=== PATIENT | female | born 1960 | race Hispanic/Latino ===

== ENCOUNTER 2018-04-16 15:41 | Inpatient (IN) | payer BC ==
[2018-04-16] MEDS ORDERED: Sodium Chloride 0.9% 500 ML IV STA (15:51)
[2018-04-16 16:15] LABS: BASO # 0.03 K/mm3 (0.0-2.0); BASO % 0.4 % (0.0-3.0); EOS # 0.1 (0.0-0.7); EOS % 0.7 % (1.5-5.0); GRAN # 4.5 (1.4-6.5); GRAN % 55.9 % (50.0-68.0); HEMOGLOBIN 15.6 g/dL (12.0-16.0); LYMPH # 3.1 (1.2-3.4); MEAN CELL VOLUME 84.6 fl (80.0-105.0); MEAN CORPUSCULAR HEMOGLOBIN 29.3 pg (25.0-35.0); MEAN CORPUSCULAR HGB CONC 34.7 g/dl (31.0-37.0); MEAN PLATELET VOLUME 10.1 fl (7.0-11.0); MONO # 0.3 (0.1-0.6); RBC 5.32 10^6/uL (3.5-6.1); RED CELL DISTRIBUTION WIDTH 13.1 % (11.5-14.5); WHITE BLOOD COUNT 8.1 10^3/ul (4.5-11.0)
[2018-04-16 16:28] LABS: INR 0.91 (0.93-1.08); PARTIAL THROMBOPLASTIN TIME 30.4 Seconds (25.1-36.5); PROTHROMBIN TIME 10.3 SECONDS (9.4-12.5)
[2018-04-16 16:30] LABS: ALB/GLOB RATIO 1.5 (1.1-1.8); ALBUMIN 4.8 g/dL (3.0-4.8); ALT/SGPT 26 U/L (7-56); AMYLASE 54 U/L (35-125); AST/SGOT 30 U/L (14-36); BLOOD UREA NITROGEN 14 mg/dL (7-21); CALCIUM 9.1 mg/dL (8.4-10.5); GFR AFRICAN-AMERICAN > 60; GFR NON-AFRICAN AMERICAN > 60; LIPASE 88 U/L (23-300)
[2018-04-16 16:32] LABS: ACETAMINOPHEN < 10.0 ug/ml (10.0-20.0); SALICYLATE < 1 mg/dL (2.0-20.0)
--- NOTE | 2018-04-16 16:39 | RAD ---
Date of service: 04/16/2018 HISTORY: weakness COMPARISON: 12/05/2014 FINDINGS: LUNGS: No active pulmonary disease. PLEURA: No significant pleural effusion identified, no pneumothorax apparent. CARDIOVASCULAR: Normal. OSSEOUS STRUCTURES: No significant abnormalities. VISUALIZED UPPER ABDOMEN: Normal. OTHER FINDINGS: None. IMPRESSION: No active disease.
[2018-04-16 16:40] LABS: TROPONIN I < 0.01 ng/mL
[2018-04-16] MEDS ORDERED: Multivitamin (MVI) 10 ML, Thiamine 100 MG, Folic Acid 1 MG in Sodium Chloride 0.9% 1,00... IV ONE ×2 (16:54→19:23)
--- NOTE | 2018-04-16 19:29 | CARD ---
APPROVED REPORT Date of service: 04/16/2018 EKG Measurement Heart [id number] <Conclusion> Normal sinus rhythm Prolonged QT Abnormal ECG
--- NOTE | 2018-04-16 20:23 | ED PDOC ---
Arrival/HPI - General Chief Complaint: Alcohol Ingestion Time Seen by Provider: 04/16/18 15:46 Historian: Patient - History of Present Illness Narrative History of Present Illness (Text): 04/16/18 15:50 Patient is a 58 year old female, with past medical history of alcohol abuse, presents to the Emergency department complaining of worsening tremulousness and nausea since past 2 days. Patient admits to "binge drinking" over past week stating her last drink was 2 hours prior to arrival. Family reports patient has been increasingly agitated since yesterday prompting patient to present to the Emergency department for medical evaluation. Patient reports palpitations and "not feeling well". Denies hematemesis or dark or bloody stools. Denies chest pain or shortness of breath. Time/Duration: 1 week Symptom Onset: Gradual Activities at Onset: Light Context: Other (Drinking) Past Medical History - Provider Review Nursing Documentation Reviewed: Yes - Infectious Disease Hx of Infectious Diseases: None - Tetanus Immunization Tetanus Immunization: Unknown - Past Medical History Past Medical History: No Previous - Cardiac Hx Cardiac Disorders: No Hx Hypertension: No - Pulmonary Hx Respiratory Disorders: No Hx Tuberculosis: No - Neurological Hx Neurological Disorder: No HX Cerebrovascular Accident: No Hx Seizures: No - HEENT Hx HEENT Disorder: No - Renal Hx Renal Disorder: No - Endocrine/Metabolic Hx Endocrine Disorders: No - Hematological/Oncological Hx Blood Disorders: No Hx Cancer: No - Integumentary Hx Dermatological Disorder: No - Musculoskeletal/Rheumatological Hx Musculoskeletal Disorders: No - Gastrointestinal Hx Gastrointestinal Disorders: No - Genitourinary/Gynecological Hx Genitourinary Disorders: No Hx Sexually Transmitted Diseases: No - Psychiatric Hx Psychophysiologic Disorder: No Hx Anxiety: No Hx Bipolar Disorder: No Hx Depression: No Hx Emotional Abuse: No Hx Hallucinations: No Hx Panic Disorder: No Hx Post Traumatic Stress Disorder: No Hx Psychosis: No Hx Physical Abuse: No Hx Schizophrenia: No Hx Sexual Abuse: No Hx Substance Use: No Other/Comment: pt claims to kill self, denies hurting others. - Past Surgical History Past Surgical History: Non-Contributing - Surgical History Hx Appendectomy: Yes Hx Orthopedic Surgery: Yes (left knee meniscus surgery) Other/Comment: breast implant - Anesthesia Hx Anesthesia: Yes Hx Anesthesia Reactions: No Hx Malignant Hyperthermia: No - Suicidal Assessment Feels Threatened In Home Enviroment: No Family/Social History - Physician Review Nursing Documentation Reviewed: Yes Family/Social History: Unknown Family HX Smoking Status: Former Smoker Hx Alcohol Use: Yes (past 3 years has picked up drinking) Frequency of alcohol use: Daily Hx Substance Use: No Hx Substance Use Treatment: No Allergies/Home Meds Allergies/Adverse Reactions: Allergies Penicillins Adverse Reaction (Verified 04/16/18 15:49) GI symptoms/burning Home Medications: Home Meds Medication Instructions Recorded Confirmed Amphetamine Salt Combination 1 tab PO DAILY 04/16/18 04/16/18 [Adderall] Review of Systems - Review of Systems Constitutional: Other (tremulousness). absent: Fevers Eyes: absent: Vision Changes ENT: absent: Hearing Changes Respiratory: absent: SOB Cardiovascular: Palpitations. absent: Chest Pain, Edema Gastrointestinal: Nausea. absent: Abdominal Pain, Stool Changes, Diarrhea, Vomiting, Appetite Changes, Hematochezia, Hematemesis Genitourinary Female: absent: Hematuria, Urine Output Changes Musculoskeletal: absent: Back Pain Skin: absent: Rash Neurological: Dizziness. absent: Headache, Focal Weakness, Speech Changes, Disequilibrium, Seizure Endocrine: absent: Diaphoresis Hemo/Lymphatic: absent: Easy Bleeding Psychiatric: Anxiety. absent: Suicidal Ideation Physical Exam - Physical Exam Narrative Physical Exam (Text): 04/16/18 15:50 Head: Atraumatic. Normocephalic. Eyes: PERRL. EOMI. Conjunctivae are not pale. Sclera anicteric. ENT: Mucous membranes are dry and tacky. No drooling. No stridor. No facial edema. Neck: Supple. Full ROM. No JVD. No lymphadenopathy. Cardiovascular: Tachycardic. No murmur auscultated. Distal pulses intact. Pulmonary/Chest: No evidence of respiratory distress. Clear to auscultation bilaterally. No wheezing, rales or rhonchi. Abdominal: Soft and non-distended. There is no tenderness. No rebound, guarding, or rigidity. No organomegaly. Good bowel sounds. Back: Nontender. Extremities: No edema. No cyanosis. Full range of motion in all extremities. No calf tenderness. Skin: Skin is warm and dry. No petechiae. No purpura. No jaundice. Rectal: no gross bleeding reported Neurological: Alert, awake, and oriented to person, place, time, and situation. No slurred speech. No facial droop. Steady gait. No focal weakness or sensory deficits. Tremulous. Psychiatric: Tearful at times. Anxious. Denies suicidal or homicidal ideation. Vital Signs Reviewed: Yes Vital Signs Pulse Resp BP Pulse Ox 04/16/18 19:06 110 H 18 126/79 97 04/16/18 17:45 102 H 18 108/71 95 04/16/18 15:43 113 H 19 141/72 96 Temperature: Afebrile Blood Pressure: Normal Pulse: Tachycardic Respiratory Rate: Normal Appearance: Positive for: Well-Appearing, Non-Toxic, Comfortable Pain Distress: None Mental Status: Positive for: Alert and Oriented X 3 Finger Stick Blood Glucose: 115 Medical Decision Making ED Course and Treatment: 04/16/18 15:50 Impression: 58 year old female presents to the Emergency department for tremulousness and nausea. Differential Diagnosis included but are not limited to: alcohol withdrawal, alcohol abuse, alcohol intoxication Plan: -- EKG -- Labs -- Chest X-ray -- IV Fluids -- Zofran -- Ativan -- Urinalysis -- Reassess and disposition Prior Visits: Notes and results from previous visits were reviewed. Progress Notes: Patient seen immediately upon arrival to ED accompanied by family who also supplements history. On initial exam, she is tachycardic and tremulous, admits to "binge drinking". She is not slurring or unsteady. No headache, no abdominal pain, no dark or bloody stools reported. Suspect tachycardia related to component of alcohol withdrawal, anxiety. NO suicidal ideation reported. IV ativan ordered with mild improvement of symptoms. Additional Ativan ordered and less tachycardia and tremulousness noted. She is able to rest and is easily arousable. No respiratory distress noted. NO abdominal pain reported. Risks of excessive alcohol use reviewd with patient. Banana bag iv fluids ordered. Case d/w oncall physician Dr Jaylon Ziegler, accepts patient to his service to telemetry bed. 04/16/18 16:26 Chest X-ray reviewed by radiologist, shows no active disease. 04/17/18 01:29 - Lab Interpretations Lab Results: 04/16/18 16:11 04/16/18 16:11 Lab Results 04/16/18 16:11: Alcohol, Quantitative 257 H 04/16/18 16:11: Salicylates < 1 L, Acetaminophen < 10.0 L 04/16/18 16:11: Sodium 141, Potassium 4.1, Chloride 100, Carbon Dioxide 23, Anion Gap 22 H, BUN 14, Creatinine 0.6 L, Est GFR ( Amer) > 60, Est GFR ( Non-Af Amer) > 60, Random Glucose 115 H, Calcium 9.1, Magnesium 1.9, Total Bilirubin 0.5, AST 30, ALT 26, Alkaline Phosphatase 87, Lactate Dehydrogenase 389, Total Creatine Kinase 67, Troponin I < 0.01, Total Protein 8.1, Albumin 4.8 , Globulin 3.3, Albumin/Globulin Ratio 1.5, Amylase 54, Lipase 88 04/16/18 16:11: PT 10.3, INR 0.91 L, APTT 30.4 04/16/18 16:11: WBC 8.1, RBC 5.32, Hgb 15.6, Hct 45.0, MCV 84.6, MCH 29.3, MCHC 34.7, RDW 13.1, Plt Count 326, MPV 10.1, Gran % 55.9, Lymph % (Auto) 39.0 H, Wilkin % (Auto) 4.0, Eos % (Auto) 0.7 L, Baso % (Auto) 0.4, Gran # 4.50, Lymph # ( Auto) 3.1, Wilkin # (Auto) 0.3, Eos # (Auto) 0.1, Baso # (Auto) 0.03 - RAD Interpretation Radiology Orders: 04/16/18 15:50 CHEST PORTABLE [RAD] Stat Residential Appliance 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: Radiologist - Medication Orders Current Medication Orders: Multivitamins/Vitamin C 10 ml/Thiamine HCl 100 mg/ Folic Acid 1 mg/ Sodium Chloride 1,011.2 mls @ 60 mls/hr IV .[id number] Stop: 04/17/18 12:14 Last Admin: 04/16/18 20:17 Dose: 60 mls/hr Comments: initiated in ER eMAR Start Stop Document 04/16/18 20:17 MS (Rec: 04/16/18 20:17 MS [id number]) Intravenous Solution Start Date 04/16/18 Start Time 20:17 Lorazepam (Ativan) 0.5 mg IVP Q4H PRN; Protocol PRN Reason: Agitation Last Admin: 04/16/18 21:28 Dose: 0.5 mg IVP Administration Document 04/16/18 21:28 MS (Rec: 04/16/18 21:37 MS [id number]) Charges for Administration # of IVP Administrations 1 Behavioural Document 04/16/18 21:28 MS (Rec: 04/16/18 21:37 MS [id number]) Maintenance Maintenance Dose No Nonmedicinal Nonmedicinal Interventions Redirect Therapeutic Communication Activity Behavior Behavior for Medication: Anxiety Behavior Comment withdrawal Re-Assess: Reassess Psych Meds Document 04/16/18 21:58 FG (Rec: 04/17/18 00:57 FG [facility] [place]-[id number]) Reassess Psych Med Effective Ondansetron HCl (Zofran Inj) 4 mg IVP Q6H PRN PRN Reason: Nausea/Vomiting Pantoprazole Sodium (Protonix Inj) 40 mg IVP DAILY LULÚ Discontinued Medications Sodium Chloride (Sodium Chloride 0.9%) 500 mls @ 1,000 mls/hr IV .Q30M STA Stop: 04/16/18 16:20 Last Admin: 04/16/18 16:10 Dose: 1,000 mls/hr eMAR Start Stop Document 04/16/18 16:10 GMD (Rec: 04/16/18 16:11 [id number] Intravenous Solution Start Date 04/16/18 Start Time 16:10 End Date 04/16/18 End time 16:40 Total Infusion Time 30 Multivitamins/Vitamin C 10 ml/Thiamine HCl 100 mg/ Folic Acid 1 mg/ Sodium Chloride 1,011.2 mls @ 100 mls/hr IV .Q10H7M ONE Stop: 04/17/18 03:00 Last Admin: 04/16/18 18:10 Dose: 100 mls/hr eMAR Start Stop Document 04/16/18 18:10 GMD (Rec: 04/16/18 18:10 GMD [facility] [place]-[id number]) Intravenous Solution Start Date 04/16/18 Start Time 18:10 Lorazepam (Ativan) 1 mg IVP ONCE ONE Stop: 04/16/18 15:52 Last Admin: 04/16/18 16:09 Dose: 1 mg IVP Administration Document 04/16/18 16:09 GMD (Rec: 04/16/18 16:09 [id number]) Charges for Administration # of IVP Administrations 1 Lorazepam (Ativan) 1 mg IVP ONCE ONE Stop: 04/16/18 16:19 Last Admin: 04/16/18 16:34 Dose: 1 mg IVP Administration Document 04/16/18 16:34 GMD (Rec: 04/16/18 16:34 [id number] Charges for Administration # of IVP Administrations 1 Ondansetron HCl (Zofran Inj) 4 mg IVP ONCE ONE Stop: 04/16/18 15:54 Last Admin: 04/16/18 16:09 Dose: 4 mg IVP Administration Document 04/16/18 16:09 GMD (Rec: 04/16/18 16:09 [facility]MD [facility] [id number]) Charges for Administration # of IVP Administrations 1 - Scribe Statement The provider has reviewed the documentation as recorded by the Scribe Gerson Andujar. All medical record entries made by the Scribe were at my direction and personally dictated by me. I have reviewed the chart and agree that the record accurately reflects my personal performance of the history, physical exam, medical decision making, and the department course for this patient. I have also personally directed, reviewed, and agree with the discharge instructions and disposition. Disposition/Present on Arrival - Present on Arrival Any Indicators Present on Arrival: No History of DVT/PE: No History of Uncontrolled Diabetes: No Urinary Catheter: No History of Decub. Ulcer: No History Surgical Site Infection Following: None - Disposition Have Diagnosis and Disposition been Completed?: Yes Diagnosis: Alcohol withdrawal Disposition: HOSPITALIZED Disposition Time: 16:30 Patient Plan: Admission, Telemetry Condition: SERIOUS
[2018-04-16 20:49] LABS: PH,URINE 5.5 (4.7-8.0); URINE BILIRUBIN NEGATIVE (NEGATIVE); URINE BLOOD SMALL (NEGATIVE); URINE GLUCOSE (UA) NEGATIVE (NEGATIVE); URINE LEUKOCYTE ESTERASE NEGATIVE Leu/uL (NEGATIVE); URINE PROTEIN NEGATIVE mg/dL (<30 mg/dL); URINE UROBILINOGEN 0.2 E.U./dL (<1 E.U./dL)
[2018-04-16 20:50] LABS: URINE APPEARANCE CLEAR (CLEAR); URINE COLOR DARK YELLOW (YELLOW)
[2018-04-16 20:56] LABS: URINE EPITHELIAL CELLS 0 - 2 /hpf (0-5); URINE HYALINE CAST 0 - 2 /hpf; URINE RBC 0 - 2 /hpf (0-2); URINE WBC NEGATIVE /hpf (0-6)
[2018-04-16 23:23] VITALS: BMI 25.0
--- NOTE | 2018-04-17 03:25 | HP ---
HISTORY OF PRESENT ILLNESS: I was called down to the ER to see her. She is a 58-year-old female who comes in, shaky, in and out of it mentally, not feeling well, lots of abdominal pain with nauseousness. PAST MEDICAL HISTORY: She has a past medical history of alcohol abuse, GERD. She has been nauseous. She is in and out of it mentally, but she is asking for food. No chest pain, no shortness of breath. No abdominal pain. I do not see anything about suicidal thoughts or anything like that. PAST SURGICAL HISTORY: She has had an appendectomy. She had left knee meniscus tear surgery. She had breast implants. ALLERGIES: SHE HAS ALLERGIES TO PENICILLIN. MEDICINES: She takes medicines for GERD. She has taken diazepam and Ananda-Citrate, multivitamin, and glucosamine chondroitin in the past. FAMILY HISTORY: Some hypertension in the family. SOCIAL HISTORY: No smoking, lots of alcohol. No substance abuse. REVIEW OF SYSTEMS: On review of systems, no acute vision or hearing changes. No sore throat. No chest pain, shortness of breath, or abdominal pain. She has some nauseousness. She is very weak and in and out of it mentally, hard to get a full grasp of her conversation. PHYSICAL EXAMINATION: VITAL SIGNS: She has a 113 at the most pulse, down to 102; 108/71 blood pressure; 18 respiratory rate; 95 to 97% O2 sat. HEENT: Head is atraumatic, normocephalic. Extraocular muscles intact. Pupils equal and reactive to light. Throat is dry. NECK: Supple. HEART: Regular rate. Normal S1, S2. LUNGS: Decreased breath sounds bilaterally, clear to auscultation. ABDOMEN: Soft, nontender. Positive bowel sounds. No guarding, no rebound or CVA tenderness. NEUROLOGIC: GCS is 15. Cranial nerves II through XII grossly intact. SKIN: Warm and dry. No apparent rashes or ulcers. PSYCHIATRIC: She is alert, very in and out of it mentally from being inebriated. LABORATORY DATA: She had tests done. She has 257 alcohol level. Sodium 141, potassium 4.1, anion gap is 22, BUN 14, creatinine 0.6, GFR greater than 60, sugar is 150, calcium is 9.1, magnesium 1.9. Total bili is 0.5, AST is 30, ALT is 26, alk phos 87, lactate dehydrogenase is 389, total creatine kinase 67. Troponin-I is less than 0.01, total protein is 8.1, albumin is 4.8, globulin 3.3. Amylase 54, lipase 88. INR is 0.91. White count is 8.1, hemoglobin 15.6, hematocrit 45, platelets of 326. Chest x-ray shows no active disease. ASSESSMENT AND PLAN: She is here for alcohol intoxication. We will put her on banana bag, Ativan, Protonix, IV fluids. Hopefully, she will improve in the next 24 to 36 hours. Jeffrey Ziegler DO
[2018-04-17 07:20] LABS: HEMOGLOBIN 13.2 g/dL (12.0-16.0); MEAN CELL VOLUME 85.7 fl (80.0-105.0); MEAN CORPUSCULAR HEMOGLOBIN 29.1 pg (25.0-35.0); MEAN PLATELET VOLUME 10.5 fl (7.0-11.0); RBC 4.53 10^6/uL (3.5-6.1); RED CELL DISTRIBUTION WIDTH 13.2 % (11.5-14.5)
[2018-04-17 07:35] LABS: ALB/GLOB RATIO 1.5 (1.1-1.8); ALBUMIN 4.1 g/dL (3.0-4.8); ALT/SGPT 22 U/L (7-56); AST/SGOT 35 U/L (14-36); BLOOD UREA NITROGEN 21 mg/dL (7-21); CALCIUM 8.8 mg/dL (8.4-10.5); GFR AFRICAN-AMERICAN > 60; GFR NON-AFRICAN AMERICAN > 60
[2018-04-17 08:20] VITALS: O2SAT 95
--- NOTE | 2018-04-17 13:07 | PN ---
DATE: 04/17/2018 SUBJECTIVE: She came in with an alcohol level that was quite high and she had some shakiness and not feeling well and alcohol level was 257. She is resting a little bit better today and very shaky this morning, but does have an appetite which is good. She is currently on Ativan 0.5 IV every 4 hours as needed, a banana bag with vitamins, Protonix IV and Zofran as needed. OBJECTIVE: VITAL SIGNS: She has a 98.2 temperature, 94 pulse, 130/76 blood pressure, 18 respiratory rate, 95% O2 sat on room air. HEENT: Head is atraumatic, normocephalic. HEART: Regular rate. LUNGS: Decreased breath sounds, but clear. ABDOMEN: Soft, nontender. Positive bowel sounds. EXTREMITIES: With no edema. DATA: She has a 7 white count, 13.2 hemoglobin, 38.8 hematocrit with 268 platelets. Sodium 138, potassium 4.5, BUN 21, creatinine 0.6. GFR is greater than 60. Sugar is 104. Calcium is 8.8. Total bili is 1, AST is 35, ALT is 22, alkaline phosphatase 77, total protein 6.7. Her lipase was 88. Amylase was 54. Urine is clean . She is being seen by no one yet. She has consults with no one, I am hoping that she does well today. She might be able to discharged later on after lunch; if she eats well, the shakiness goes away or she might stay another day. We will see how she does, will let me know this afternoon. She is here for alcohol intoxication, possible withdrawal. I think she has improved since yesterday, a little reflux and hopefully, she will improve quickly. Jeffrey Ziegler DO MTDD
[2018-04-17 17:56] VITALS: BP 156/77; RESP 17; TEMP 98.6
[2018-04-17 18:04] VITALS: PULSE 92
== END 2018-04-17 21:18 | disposition left against medical advice (07) | DRG 894 ==
LOC: ED 15:41 → ERH 16:54 → 2RSO 19:40
PROVIDERS: ADMIT Family Medicine; ATTEND Family Medicine
DX: F10.239 Alcohol dependence with withdrawal, unspecified (principal); F10.229 Alcohol dependence with intoxication, unspecified; K21.9 Gastro-esophageal reflux disease without esophagitis; Z90.49 Acquired absence of other specified parts of digestive tract; Z98.82 Breast implant status; Z82.49 Family history of ischemic heart disease and other diseases of the circulatory system; Z88.0 Allergy status to penicillin; R40.2412 Glasgow coma scale score 13-15, at arrival to emergency department; Y90.8 Blood alcohol level of 240 mg/100 ml or more

== ENCOUNTER 2018-12-09 15:05 | Inpatient (IN) | payer BC ==
[2018-12-09 15:06] VITALS: BMI 24.2
--- NOTE | 2018-12-09 16:17 | RAD ---
Date of service: 12/09/2018 HISTORY: PEs eval COMPARISON: 04/16/2018. FINDINGS: LUNGS: No active pulmonary disease. PLEURA: No significant pleural effusion identified, no pneumothorax apparent. CARDIOVASCULAR: No atherosclerotic calcification present No radiographic findings to suggest acute or significant cardiovascular disease. OSSEOUS STRUCTURES: No significant abnormalities. VISUALIZED UPPER ABDOMEN: Normal. OTHER FINDINGS: None. IMPRESSION: No active disease. No significant interval change compared to the prior examination(s).
[2018-12-09 17:42] LABS: BASO # 0.04 K/mm3 (0.0-2.0); BASO % 0.7 % (0.0-3.0); EOS # 0.2 (0.0-0.7); HEMOGLOBIN 13.9 g/dL (12.0-16.0); LYMPH # 3.2 (1.2-3.4); LYMPH % 56.6 % (22.0-35.0); MEAN CELL VOLUME 89.9 fl (80.0-105.0); MEAN CORPUSCULAR HEMOGLOBIN 29.8 pg (25.0-35.0); MEAN CORPUSCULAR HGB CONC 33.2 g/dl (31.0-37.0); MEAN PLATELET VOLUME 9.8 fl (7.0-11.0); MONO # 0.2 (0.1-0.6); MONO % 3.4 % (1.0-6.0); RBC 4.66 10^6/uL (3.5-6.1); RED CELL DISTRIBUTION WIDTH 13.4 % (11.5-14.5); WHITE BLOOD COUNT 5.7 10^3/uL (4.5-11.0)
--- NOTE | 2018-12-09 17:42 | ED PDOC ---
Arrival/HPI - General Chief Complaint: Psychiatric Evaluation Time Seen by Provider: 12/09/18 15:07 Historian: Patient - History of Present Illness Narrative History of Present Illness (Text): 12/09/18 17:35 58-year-old female with a history of depression and alcohol abuse presents today with worsening depression. Patient states that she is about to lose her job because she is alcoholic. Patient states she has been binge drinking since . Patient denies chest pain or shortness of breath. No abdominal pain. No vomiting or diarrhea. Patient states she is feeling nauseous now. She denies any recent trauma or injury. Patient was brought to the emergency room by her brother for psychiatric evaluation. Patient admits to drinking alcohol today. Past Medical History - Provider Review Nursing Documentation Reviewed: Yes - Travel History Have you recently traveled outside [place] w/in the past 3 mons?: No - Infectious Disease Hx of Infectious Diseases: None - Tetanus Immunization Tetanus Immunization: Unknown - Past Medical History Past Medical History: No Previous - Cardiac Hx Cardiac Disorders: No - Pulmonary Hx Respiratory Disorders: No - Neurological Hx Neurological Disorder: No - HEENT Hx HEENT Disorder: No - Renal Hx Renal Disorder: No - Endocrine/Metabolic Hx Endocrine Disorders: No - Hematological/Oncological Hx Blood Disorders: No - Integumentary Hx Dermatological Disorder: No - Musculoskeletal/Rheumatological Hx Musculoskeletal Disorders: No - Gastrointestinal Hx Gastrointestinal Disorders: No - Genitourinary/Gynecological Hx Genitourinary Disorders: No - Psychiatric Hx Depression: Yes Hx Substance Use: Yes - Past Surgical History Past Surgical History: Non-Contributing - Surgical History Hx Appendectomy: Yes - Anesthesia Hx Anesthesia: Yes Hx Anesthesia Reactions: No Hx Malignant Hyperthermia: No - Suicidal Assessment Feels Threatened In Home Enviroment: No Family/Social History - Physician Review Nursing Documentation Reviewed: Yes Family/Social History: Unknown Family HX Smoking Status: Former Smoker Hx Alcohol Use: Yes (binges every few months) Hx Substance Use: Yes Hx Substance Use Treatment: No Allergies/Home Meds Allergies/Adverse Reactions: Allergies Penicillins Adverse Reaction (Verified 07/03/18 16:34) GI symptoms/burning Home Medications: Home Meds Medication Instructions Recorded Confirmed Unobtainable 12/09/18 12/09/18 Review of Systems - Review of Systems Constitutional: absent: Fatigue, Fevers Respiratory: absent: SOB, Cough Cardiovascular: absent: Chest Pain, Palpitations Gastrointestinal: Nausea. absent: Abdominal Pain, Diarrhea, Vomiting Genitourinary Female: absent: Dysuria, Frequency, Hematuria Musculoskeletal: absent: Arthralgias, Back Pain, Neck Pain Skin: absent: Rash, Pruritis Neurological: Headache. absent: Dizziness Psychiatric: Depression. absent: Anxiety, Suicidal Ideation Physical Exam Vital Signs Reviewed: Yes Vital Signs Temp Pulse Resp BP Pulse Ox 12/09/18 15:40 98.0 F 115 H 18 147/96 H 95 Temperature: Afebrile Blood Pressure: Hypertensive Pulse: Tachycardic Respiratory Rate: Normal Appearance: Positive for: Well-Appearing, Non-Toxic, Comfortable Pain Distress: None Mental Status: Positive for: Alert and Oriented X 3 - Systems Exam Head: Present: Atraumatic Mouth: Present: Moist Mucous Membranes Neck: Present: Normal Range of Motion Respiratory/Chest: Present: Clear to Auscultation, Good Air Exchange. No: Respiratory Distress, Accessory Muscle Use Cardiovascular: Present: Regular Rate and Rhythm, Normal S1, S2. No: Murmurs Abdomen: No: Tenderness, Distention, Rebound, Guarding Back: Present: Normal Inspection Upper Extremity: Present: Normal ROM Lower Extremity: Present: Normal ROM Neurological: Present: GCS=15, Speech Normal Skin: Present: Warm, Dry, Normal Color Psychiatric: Present: Alert, Oriented x 3, Depressed Mood. No: Suicidal Ideation Medical Decision Making ED Course and Treatment: 12/09/18 17:37 Patient is nontoxic well-appearing in no distress tachycardic; anxious/ depression. denies SI. CBC WNL CMP WNL Tylenol WNL Salicylate WNL Alcohol level 284 Urine drug screen wnl UA; small leukocytes cxr: wnl ekg: Sinus tachycardia at 103 bpm normal axis normal intervals no ST elevations QTC 461 58-year-old female with a history of alcohol abuse presenting tachycardic and tremulous in the ER. 1 mg of Ativan given IV. Banana bag and normal saline IV bolus given Case discussed with Dr. Ziegler in depth excepts admission to telemetry for alcohol withdrawal, depression with psychotic consult Impression; alcohol withdrawal, depression Admit to telemetry - RAD Interpretation Radiology Orders: 12/09/18 15:42 CHEST PORTABLE [RAD] Stat - Medication Orders Current Medication Orders: Discontinued Medications Ondansetron HCl (Zofran Odt) 4 mg PO STAT STA Stop: 12/09/18 15:42 Last Admin: 12/09/18 15:45 Dose: 4 mg Disposition/Present on Arrival - Present on Arrival Any Indicators Present on Arrival: No History of DVT/PE: No History of Uncontrolled Diabetes: No Urinary Catheter: No History of Decub. Ulcer: No History Surgical Site Infection Following: None - Disposition Have Diagnosis and Disposition been Completed?: Yes Diagnosis: Alcohol withdrawal, Depression Disposition: HOSPITALIZED Disposition Time: 19:50 Patient Plan: Admission Patient Problems: Current Active Problems Problem Status Onset Alcohol withdrawal Acute Depression Acute Condition: FAIR
[2018-12-09 17:52] LABS: ALB/GLOB RATIO 1.4 (1.1-1.8); ALBUMIN 4.4 g/dL (3.0-4.8); ALT/SGPT 18 U/L (7-56); AST/SGOT 31 U/L (14-36); BLOOD UREA NITROGEN 15 mg/dL (7-21); CALCIUM 8.6 mg/dL (8.4-10.5); GFR NON-AFRICAN AMERICAN > 60
[2018-12-09 17:53] LABS: ACETAMINOPHEN < 10.0 ug/ml (10.0-20.0); SALICYLATE < 1 mg/dL (2.0-20.0)
[2018-12-09 19:25] LABS: URINE BILIRUBIN NEGATIVE (NEGATIVE); URINE BLOOD NEGATIVE (NEGATIVE); URINE GLUCOSE (UA) NEGATIVE (NEGATIVE); URINE LEUKOCYTE ESTERASE SMALL Leu/uL (NEGATIVE); URINE PROTEIN NEGATIVE mg/dL (<30 mg/dL); URINE UROBILINOGEN 0.2 E.U./dL (<1 E.U./dL)
[2018-12-09 19:26] LABS: URINE APPEARANCE CLEAR (CLEAR); URINE COLOR LIGHT YELLOW (YELLOW)
[2018-12-09 19:32] LABS: URINE EPITHELIAL CELLS 0 - 2 /hpf (0-5)
[2018-12-09] MEDS ORDERED: Sodium Chloride 0.9% 1,000 ML IV STA (19:35)
[2018-12-09 19:46] LABS: BARBITURATES, UR NEGATIVE (NEGATIVE); BENZODIAZEPINES, UR NEGATIVE (NEGATIVE); OPIATES, UR NEGATIVE (NEGATIVE); PHENCYCLIDINE, UR NEGATIVE (NEGATIVE)
[2018-12-09] MEDS ORDERED: Multivitamin (MVI) 10 ML, Thiamine 100 MG, Folic Acid 1 MG in Sodium Chloride 0.9% 1,00... IV ONE (20:03)
--- NOTE | 2018-12-09 22:32 | CARD ---
APPROVED REPORT Date of service: 12/09/2018 EKG Measurement Heart [id number] <Conclusion> Sinus tachycardia Otherwise normal ECG
[2018-12-10] MEDS: Sodium Chloride 0.45% 1,000 ML IV SCH ×3 (00:05→14:30)
--- NOTE | 2018-12-10 00:37 | HP ---
DATE OF EXAM: 12/09/2018 HISTORY OF PRESENT ILLNESS: I was called down to the ER. She is a nice 58-year-old white female who presents with history of depression and alcohol abuse with worsening depression today. She is about to lose her job because she is an alcoholic. She has been binge drinking since . No other issues that are going on. She has been feeling nauseous now. Her brother brought her into the emergency room, we will get a psychiatric evaluation, put her on medicines to help her get through a DT. She drank alcohol today. PAST MEDICAL HISTORY: Depression and substance abuse. PAST SURGICAL HISTORY: She had an appendectomy. FAMILY HISTORY: Unknown. SOCIAL HISTORY: Former smoker. She binge drinks every few months. She has substance abuse. ALLERGIES: SHE IS ALLERGIC TO PENICILLIN. MEDICATIONS: No medicines. REVIEW OF SYSTEMS: She is very upset about her situation. She is not short of breath. No coughing. No chest pain. No palpitations. No abdominal pain, diarrhea or vomiting but there was nauseousness. No problems urinating. No back pain or neck pain. No itches or rashes noted. There is depression. PHYSICAL EXAMINATION: VITAL SIGNS: Temperature 98, pulse 115, respiratory rate 18, and blood pressure 147/96. GENERAL: We will keep an eye on her blood pressure, could be stress related right now, but we will keep an eye on it. She is uncomfortable in bed, alert, understands what is going on. She is toxic. Alert and oriented x3. HEENT: Head is atraumatic and normocephalic. Throat is moist. NECK: Supple. No JVD. HEART: Regular rate. Normal S1 and S2. LUNGS: Decreased breath sounds, but clear to auscultation. No wheezes or rhonchi or rales. ABDOMEN: Soft and nontender. Positive bowel sounds. No guarding, no rebound. No CVA tenderness. EXTREMITIES: Good range of motion. No edema. NEUROLOGIC: GCS is 15. Cranial nerves II through XII are grossly intact. SKIN: Warm and dry. No apparent rashes or ulcers. LYMPHS: Thyroid midline. No palpable appreciable lymphadenopathy. PSYCHIATRY: Fairly well appearing under on to her situation. DIAGNOSTIC DATA: Chest x-ray showed no active disease. Urine drug screen which showed 284 alcohol level and the other urine was normal. Sodium 142, potassium 4.9, BUN 15, creatinine 0.6, GFR greater than 60, sugar is 87, calcium 8.6, total bili is 0.1. AST is 31, ALT is 18, alk phos 77, total protein 7.6, and albumin is 4.4. White count is 5.7, hemoglobin 13.9, hematocrit 41.9, and platelets of 379. IMPRESSION AND PLAN: She did have consults with Psychiatry. IV fluids, Ativan, Librium, Zofran and how much healthy diet if possible. I will get physical therapy to see her and make sure that she is stable on her feet. I will see her tomorrow. I am going to see what Psychiatry has to say and the patient did tell me she wants to go for rehab inpatient. Jeffrey Ziegler DO
[2018-12-10 07:27] LABS: HEMOGLOBIN 12.6 g/dL (12.0-16.0); MEAN CELL VOLUME 88.7 fl (80.0-105.0); MEAN CORPUSCULAR HGB CONC 32.7 g/dl (31.0-37.0); RBC 4.34 10^6/uL (3.5-6.1); RED CELL DISTRIBUTION WIDTH 13.1 % (11.5-14.5); WHITE BLOOD COUNT 8.2 10^3/uL (4.5-11.0)
[2018-12-10 07:45] LABS: ALB/GLOB RATIO 1.4 (1.1-1.8); ALBUMIN 4.1 g/dL (3.0-4.8); ALT/SGPT 17 U/L (7-56); AST/SGOT 40 U/L (14-36); BLOOD UREA NITROGEN 17 mg/dL (7-21); CALCIUM 8.5 mg/dL (8.4-10.5); GFR NON-AFRICAN AMERICAN > 60
[2018-12-10 09:02] VITALS: O2SAT 98
--- NOTE | 2018-12-10 11:31 | PN ---
DATE: 12/10/2018 SUBJECTIVE: I saw her resting comfortably in bed. She slept fair, did not have a good night at all. She is hungry which is good. She is thirsty. She is on IV fluids. She is still little bit upset about her situation. OBJECTIVE: VITAL SIGNS: She has a 98.2 temperature, pulse is down to 95, it was as high as 115. She has a 138/68 blood pressure, 20 respiratory rate, 97% O2 sat on room air. HEENT: Head is atraumatic, normocephalic. HEART: Tachy, regular rate. LUNGS: Decreased breath sounds, but clear. ABDOMEN: Soft, nontender. EXTREMITIES: No edema. MEDICATIONS: She has Ativan, Librium as needed, Zofran as needed, and IV fluids. LABORATORY DATA: She has a 8.2 white count, 12.6 hemoglobin, 38.5 hematocrit with a 253 platelet. Sodium 138, potassium 4.3, BUN 17, creatinine 0.5, GFR is greater than 60, sugar is 69, calcium 8.5, total bili is 0.5. AST is 40, ALT is 17, alk phos 74, total protein 7, albumin is 4.1. Urine was small. Toxicology of yesterday was 284 alcohol level. I am worried about the DTs that might be heading her away. She is a binge drinker. She is telling me she wants to go to a rehab facility for alcohol abuse. Hopefully, psychiatry could help us do that. In the meantime, we will continue with aggressive treatment and care on Corinna Lezama. Hopefully, she will improve and not drink anymore. Jeffrey Ziegler DO
[2018-12-10 18:15] VITALS: BP 135/92; PULSE 86; RESP 20; TEMP 98.2
--- NOTE | 2018-12-10 20:41 | CON ---
DATE OF CONSULTATION: 12/10/2018 HISTORY OF PRESENT ILLNESS: In short, the patient is a 58-year-old female with reported history of depression as well as alcohol use disorder. The patient has few previous psychiatric admissions, most recent was in [address] Rowley's service. At this time, the patient was admitted on the medical side for evaluation and stabilization of alcohol withdrawal symptoms as well as depression. This typewriter repairer got involved into the patient's care because of depressive symptoms. The patient was seen and examined today. The patient obviously presented to be depressed. The patient reported that she is going through divorce. The patient reported that she has long history of alcohol abuse and dependence. Right now the patient reported that she has withdrawal symptoms and asked this typewriter repairer to adjust her medications. The patient reported for past couple of weeks she was feeling hopeless and helpless. The patient reported at times she has thoughts that it would be better off without her in this world, and the patient denied any intent or plan to kill herself. In regard of alcohol, the patient reported that her alcohol addiction caused the patient to have problems with relationship as well as the patient is about to lose her job, if she will not admit herself into the inpatient rehab. In the emergency room, they documented that initially the patient came for psychiatric evaluation and possible admission. Going back to the patient's presentation, the patient denied that she is hearing any voices, denied seeing things. Denied paranoid ideation. The patient does not appear to be psychotic. The patient reported that she has three grown children, who are very supportive. The patient is going through divorce, and she needs to be presented in court next Friday. After that the patient wants to go to inpatient rehab for her alcohol addiction. PHYSICAL EXAMINATION: VITAL SIGNS: Reviewed. The patient's temperature is 97.9, pulse is 102, blood pressure 146/84, respirations 18. MEDICATIONS: Reviewed. The patient is on Librium 25 mg every 6 hours schedule, Ativan is 1 mg IV push every 8 hours as needed, Zofran and sodium chloride. LABORATORY DATA: Labs reviewed. Most recent was from today. Chemistry reviewed. Mildly elevated AST. Urinalysis shows small leukocyte esterase. Alcohol is 284 at the time of admission. MENTAL STATUS EXAMINATION: The patient appears to be with acceptable personal hygiene. Appears to be depressed, flat affect, as well as tearful. Thought process seems to be coherent and goal directed. The patient described her mood as depressed, at times hopeless. Thought process coherent and goal directed. Thought content, the patient denied visual, auditory, or tactile hallucinations. Denied paranoid ideation. The patient denied thoughts of harming her self or others. Denied intent or plan. Insight and judgment seemed to be improving. Impulses are well controlled. IMPRESSION: Most likely, the patient suffers from major depressive disorder. This typewriter repairer also would like to rule out substance-induced mood disorder. The patient has alcohol use disorder. PLAN: The patient is willing to admit herself into the psychiatric inpatient unit. This typewriter repairer discussed the option to increase the Lexapro to 15 mg, the patient was taking 10 mg daily, and the patient reported that that medication to be very helpful, multivitamins, thiamine and folic acid. Zofran will be given as needed for nausea, Sonata as needed for insomnia. This typewriter repairer also suggested naltrexone treatment. The patient was opened to initiate that treatment. Meanwhile, the patient will be transferred to the psychiatric inpatient unit for further evaluation and stabilization and medication adjustment. Thank you very much for letting me participate in care of your patient. Haydee Kay MD
--- NOTE | 2018-12-12 04:52 | DS ---
HOSPITAL COURSE: She was here at [facility] for alcohol withdrawal situation. She was taken to Psychiatry. I did not know she was going to be going so quickly as she was brought to the psychiatric unit for detox and recovery from DTs and alcohol withdrawal. Jeffrey Ziegler DO
== END 2018-12-10 18:55 | DRG 897 ==
LOC: ED 15:05 → ERH 20:03 → 2RNO 22:23
PROVIDERS: ADMIT Family Medicine; ATTEND Family Medicine
DX: F10.239 Alcohol dependence with withdrawal, unspecified (principal); F32.9 Major depressive disorder, single episode, unspecified; R11.0 Nausea; F19.10 Other psychoactive substance abuse, uncomplicated; Z87.891 Personal history of nicotine dependence; F10.24 Alcohol dependence with alcohol-induced mood disorder; Y90.8 Blood alcohol level of 240 mg/100 ml or more; Z90.49 Acquired absence of other specified parts of digestive tract; Z88.0 Allergy status to penicillin

== ENCOUNTER 2018-12-10 18:55 | Inpatient (IN) | payer BC ==
[2018-12-10 20:52] VITALS: BMI 25.0
--- NOTE | 2018-12-10 22:52 | PCM.BM ---
<Shawna Franz - Last Filed: 12/10/18 22:46> Treatment Plan Problems - Problems identified on initial assessmt Knowledge deficit:alcohol use Date Initiated: 12/10/18 Time Initiated: 22:54 Assessment reference: NA Status: Active Hopelessness/helplessness Date Initiated: 12/10/18 Time Initiated: 22:54 Assessment reference: NA Status: Active Ineffective coping Date Initiated: 12/10/18 Time Initiated: 22:55 Assessment reference: NA Status: Active Anxiety related to substance use Date Initiated: 12/10/18 Time Initiated: 22:56 Assessment reference: NA Status: Active ineffective family coping:compromised Date Initiated: 12/10/18 Time Initiated: 22:58 Assessment reference: NA Status: Active Treatment assets and liabiliti Patient Assests: cooperative, educated, insightful, ADL independent, physically healthy, good support system, negotiates basic needs, cognitively intact <Patience Marquez - Last Filed: 12/11/18 13:02> - Diagnosis (1) Alcohol use disorder, severe, dependence Status: Acute Interventions: 12/11/18 13:02 group, milieu and supportive tx * Lexapro 15 mg po daily for depression and anxiety * Librium 50 mg po TID and ativan 2 mg q6 prn: alcohol withdrawal * Consider naltrexone for alcohol cravings if patient is interested in this intervention * Seroquel 50 mg po HS to help with insomnia (2) Alcohol withdrawal Status: Acute Interventions: 12/11/18 13:02 group, milieu and supportive tx * Lexapro 15 mg po daily for depression and anxiety * Librium 50 mg po TID and ativan 2 mg q6 prn: alcohol withdrawal * Consider naltrexone for alcohol cravings if patient is interested in this intervention * Seroquel 50 mg po HS to help with insomnia (3) Depression Status: Acute Interventions: 12/11/18 13:02 group, milieu and supportive tx * Lexapro 15 mg po daily for depression and anxiety * Librium 50 mg po TID and ativan 2 mg q6 prn: alcohol withdrawal * Consider naltrexone for alcohol cravings if patient is interested in this intervention * Seroquel 50 mg po HS to help with insomnia <Charity Blue - Last Filed: 12/11/18 13:46> Family Contact Family involvement: Family/SO is involved
[2018-12-11 03:03] VITALS: O2SAT 96
[2018-12-11 08:00] LABS: GLUCOSE,FASTING 107 mg/dL (65-110); HDL CHOLESTEROL 73 mg/dL (29-60)
[2018-12-11 08:11] LABS: LDL CHOLESTEROL 152 mg/dL (0-129)
[2018-12-11] MEDS: Multivitamin Therapeutic Tab PO SCH (09:57)
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
--- NOTE | 2018-12-11 18:32 | CON ---
DATE: 12/11/2018 HISTORY OF PRESENT ILLNESS: She admitted to the hospital side for binging alcohol, elevated alcohol level, tremors; and now she has been in psychiatric unit, she is there now. She is a nice 58-year-old white female having problems with depression and drinking abuse, got very bad. She was about to lose her job, binge drinking. Now she is on psychiatric floor for depression, substance abuse, and alcohol abuse. She had an appendectomy. FAMILY HISTORY: Unknown. SOCIAL HISTORY: A former smoker, she drinks, and she has substance abuse. ALLERGIES: SHE IS ALLERGIC TO PENICILLIN. MEDICATIONS: She takes no medications. REVIEW OF SYSTEMS: She is very upset about her situation, very depressed and anxious. Not short of breath. No coughing. No chest pain. No palpitations. No abdominal pain. No diarrhea. No vomiting, but she was nauseous. No problems urinating. No back pain. No neck pain. No itches. No rashes. Noted there is depression. PHYSICAL EXAMINATION: VITAL SIGNS: She had 98 temperature, pulse was down to 88, respiratory rate of 16, 144/88 blood pressure, I will watch the blood pressure. HEENT: Head is atraumatic and normocephalic. Throat is moist. NECK: Supple. No JVD. Thyroid midline. HEART: Regular rate. Normal S1 and S2. LUNGS: Decreased breath sounds bilaterally. Clear to auscultation. No wheezes, no rhonchi, and no rales. ABDOMEN: Soft and nontender. Positive bowel sounds. No guarding. No rebound. No CVA tenderness. EXTREMITIES: No edema. Good range of motion. NEUROLOGIC: GCS is 15. Cranial nerves II through XII are grossly intact. SKIN: Warm and dry. No apparent rashes or ulcers. She is more comfortable, less stressed. She was shaking last night with tremors. LABORATORY DATA: She had 107 fasting sugar, 126 triglycerides, cholesterol was 263, and LDL was 152 and I put her on Lipitor. TSH was 4.98, low high. I will repeat that tomorrow with regular blood test. ASSESSMENT AND PLAN: She will be followed by Psychiatry. Hopefully we can get her feeling better. She also likes to go to rehab for alcohol detox. We will see how that could dean out. We will add Lipitor, she might need Synthroid, we will see. Jeffrey Ziegler DO
[2018-12-12 07:51] LABS: HEMOGLOBIN 13.7 g/dL (12.0-16.0); MEAN CELL VOLUME 90.1 fl (80.0-105.0); MEAN CORPUSCULAR HEMOGLOBIN 29.5 pg (25.0-35.0); MEAN CORPUSCULAR HGB CONC 32.7 g/dl (31.0-37.0); MEAN PLATELET VOLUME 9.9 fl (7.0-11.0); RBC 4.65 10^6/uL (3.5-6.1); RED CELL DISTRIBUTION WIDTH 13.2 % (11.5-14.5); WHITE BLOOD COUNT 5.1 10^3/uL (4.5-11.0)
[2018-12-12 08:10] LABS: ALB/GLOB RATIO 1.3 (1.1-1.8); ALBUMIN 4.2 g/dL (3.0-4.8); ALT/SGPT 9 U/L (7-56); AST/SGOT 23 U/L (14-36); BLOOD UREA NITROGEN 16 mg/dL (7-21); CALCIUM 9.3 mg/dL (8.4-10.5); GFR NON-AFRICAN AMERICAN > 60
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
[2018-12-12] MEDS: Multivitamin Therapeutic Tab PO SCH (09:19)
[2018-12-12] MEDS: Lubricant Eye Drops UD OU SCH ×5 (12:57→21:45)
--- NOTE | 2018-12-12 15:55 | PN ---
DATE: 12/12/2018 SUBJECTIVE: I saw her in the psychiatric unit. She is doing better. She is feeling much better. No more tremors, it is much less. She is taking medications much less. She is eating okay. I believe she is going to be discharged on Friday, today is Friday. MEDICATIONS: She is on Ativan, folic acid, Lexapro, Librium, Lipitor, Seroquel, Thera-Tabs, and Zofran. OBJECTIVE: VITAL SIGNS: She has a 97.4 temperature, 88 pulse, 112/84 blood pressure, 19 respiratory rate, 96% O2 sat on room air. HEENT: Head is atraumatic, normocephalic. Throat is moist. HEART: Regular rate. LUNGS: Clear to auscultation. NECK: Supple. ABDOMEN: Soft, nontender. EXTREMITIES: No edema. LABORATORY DATA: She has a 5.1 white count, 13.7 hemoglobin, 41.9 hematocrit and 294 platelets. Sodium 138, potassium 4.1, BUN 16, creatinine 0.5, GFR is greater than 60, sugar is 100, calcium 9.3, total bili is 0.4. AST is 23, ALT is 9, alk phos 53, total protein 7.5, albumin is 4.2. The cholesterol is high at 263, she is on medicine for that. TSH came down to 2.74, she will not need any Synthroid, it was probably stress-related. So, we will continue with the Lipitor and the psychiatric medications. I will see her tomorrow. I encouraged her to participate, eat the food well and l do think she is improving. She went through alcohol binging, alcohol withdrawal, a little depression, high cholesterol. Jeffrey Ziegler DO MTDD
[2018-12-13] MEDS: Lubricant Eye Drops UD OU SCH ×5 (03:30→20:23)
[2018-12-13] MEDS: Multivitamin Therapeutic Tab PO SCH (07:42)
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
--- NOTE | 2018-12-13 14:40 | PN ---
DATE: 12/13/2018 SUBJECTIVE: She is sleeping well now in the psychiatric floor. She is reading a little bit. She is participating. She is feeling better, less tremors. She is on Ativan, folic acid, Lexapro, Librium, Lipitor, Motrin, Refresh, Sonata, Thera-Tabs Zofran. PHYSICAL EXAMINATION: GENERAL: She had a nosebleed the other day. I asked her now that it has stopped bleeding, that she could put some Vaseline on the nose to keep it moist. She is not sure why that happened, could be the dry air. VITAL SIGNS: She has a 97.5 temperature, 85 pulse, 113/80 blood pressure, 20 respiratory rate. HEENT: Head is atraumatic, normocephalic. Right now there is no nosebleed. HEART: Regular rate. LUNGS: Clear to auscultation. ABDOMEN: Soft. EXTREMITIES: No edema. LABORATORY DATA: Labs yesterday was good CBC, good SMA-20. TSH came back to normal. Nonreactive RPR. MEDICATIONS: Text. ASSESSMENT AND PLAN: She is being seen by Psychiatry. I understand that she might be discharged tomorrow. She will come to my office tomorrow for a note that she needs for her job situation. We will continue aggressive treatment and care. Had alcohol abuse. Jeffrey Ziegler DO
[2018-12-14 06:35] VITALS: PULSE 77
[2018-12-14] MEDS: Multivitamin Therapeutic Tab PO SCH (09:20)
[2018-12-14] MEDS: Lubricant Eye Drops UD OU SCH ×5 (09:26→23:46)
--- NOTE | 2018-12-14 13:04 | PN ---
DATE: 12/14/2018 SUBJECTIVE: She tells me she is being discharged today from the psychiatric floor. I am hopeful that she will do very well. She has some issues. 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 I am hoping that when this is taken care of, she will then get to a rehab for her alcohol problem. She understands that she is to come by to my office for help. She is on Ativan, folic acid, Lexapro, Librium, Lipitor, Motrin, Refresh eyedrops, Sonata, Thera-Tabs and Zofran. PHYSICAL EXAMINATION: VITAL SIGNS: She has a 97.8 temperature, 77 pulse, 112/72 blood pressure, 18 respiratory rate. HEAD: Atraumatic, normocephalic. HEART: Regular rate. LUNGS: Decreased breath sounds but clear. ABDOMEN: Soft. EXTREMITIES: No edema. LABORATORY DATA: Last labs on 12/12/2018 that she did well. I am hoping she will get to a rehab for her when gets through her financial and personal issues. She had alcohol intoxication and abuse. Jeffrey Ziegler DO
--- NOTE | 2018-12-14 14:39 | PCM.PYCHPN ---
Psychiatric Progress Note - Psychiatric Progress Note Patient seen today, length of contact: 30min Patient Chief Complaint: "I am not well today, I was very anxious and tremolos..." Problems Identified/Issues Discussed: Suicide/ homicide prevention, past psychiatric h/o, current psychiatric symptoms, medical problems, risk/benefits and alternatives of medications, medications compliance, coping strategies, substance abuse h/o, relapse prevention, importance of follow up with psychiatrist and therapist, discharge plan. Medical Problems: See HPI Diagnostic Results: 12/12/18 07:00 12/12/18 07:00 Lab Results 12/12/18 07:00: TSH 3rd Generation 2.74 12/12/18 07:00: Sodium 138, Potassium 4.1, Chloride 106, Carbon Dioxide 27, Anion Gap 10, BUN 16, Creatinine 0.5 L, Est GFR ( Amer) > 60, Est GFR (Non-Af Amer) > 60, Random Glucose 100, Calcium 9.3, Total Bilirubin 0.4, AST 23, ALT 9, Alkaline Phosphatase 63, Total Protein 7.5, Albumin 4.2, Globulin 3.2, Albumin/Globulin Ratio 1.3 12/12/18 07:00: WBC 5.1 D, RBC 4.65, Hgb 13.7, Hct 41.9, MCV 90.1, MCH 29.5, MCHC 32.7, RDW 13.2, Plt Count 294, MPV 9.9 12/11/18 07:30: RPR Nonreactive 12/11/18 07:30: TSH 3rd Generation 4.98 H 12/11/18 07:30: Fasting Glucose 107, Triglycerides 126, Cholesterol 263 H, LDL Cholesterol Direct 152 H, HDL Cholesterol 73 H Vital Signs Temp Pulse Resp BP Pulse Ox 12/14/18 06:34 97.8 F 77 18 112/72 12/13/18 16:46 88 101/68 12/13/18 08:00 97.5 F L 85 20 113/80 12/12/18 16:44 90 119/82 12/12/18 07:00 97.4 F L 88 19 112/84 12/11/18 16:19 85 122/77 12/11/18 07:00 98 F 97 H 18 130/95 H 12/10/18 19:11 98.7 F 93 H 18 148/96 H 96 DSM 5 Symptoms Update: as per 's initial assessment: Patient is a 58 yo WF with a history of depression and anxiety, alcohol dependency, + prior psychiatric admissions~most recently in 2014 at [facility] [place] and treated by Dr. Rowley, currently in outpatient treatment with Dr. Chaney, compliant with prescribed Lexapro 10 mg daily and Adderall (unknown but low dose), no SA who was transferred from the medical floor on 12/10/18 after being treated there for alcohol withdrawal. s ad copy writer evaluated pt on the medical site as a reimbursement consultant on 12/10/18 and recommended Lexapro be increased to 15 mg po daily and possibility of starting naltrexone which patient appeared receptive to. pt was seen today at the treatment team meeting, hygiene is improving, she is well-oriented to month, year, location and circumstances. She is a little tremulous due to alcohol withdrawal, pt said that yesterday she did not get her dose of Librium, and "today I don't feel good!" pt reported that her mood is slowly improving, pt reported that she is anxious about her divorce, pt reported transient feeling of hopelessness. pt tolerates meds well, no side effects observed or reported AIMS 0, no EPS. pt willing to max her dose of lexapro, willing to start naltrexone. as per staff pt is visible in the unit, no agitation, no aggression. Diagnostic Results: Major Depression, Severe without psychotic features Severe alcohol use disorder, currently in withdrawal Very likely contribution of SIMD NAHUN Medication Change: Yes (Librium as needed that the nighttime, Lexapro increased, naltrexone started) Medical Record Reviewed: Yes Consults ordered or reviewed: Medical consult appreciated, please see notes for more detailed information Mental Status Examination - Cognitive Function Orientation: Person, Place, Situation Attention: WNL Concentration: WNL Association: WNL Fund of Knowledge: WNL - Mood Mood: Depressed (better), Anxious ("I feel very anxious today") - Affect Affect: Constricted (But more reactive and mood congruent) - Speech Speech: Appropriate - Formal Thought Process Formal Thought Process: No Impairment - Suicidal Ideation Suicidal Ideation: No - Homicidal Ideation Homicidal Ideation: No Goal/Treatment Plan - Goal/Treatment Plan Need for Continued Stay: Remain at risks for inpatient hospitalization, Severe depression anxiety, Discharge may exacerbated symptoms, Severe functional impa irment Progress Toward Problem(s) and Goals/Treatment Plan: group, milieu and supportive tx Dual diagnosis program/IOP * Appreciate f/u by Dr. Ziegler on 12/11/18 and 12/12/18~adding lipitor. Patient doesn't require synthroid at this time * Lexapro 20 mg po daily for depression and anxiety * Librium 50 mg po bid, add HS for possible withdrawals * naltrexone 50mg daily for alcohol cravings * Sonata 5 mg po HS to help with insomnia * Vitals reviewed and noted below: Family involvement Follow up on labs Will monitor closely Pt was educated about risk/benefits and alternatives of medications, coping strategies (safety plan, suicide prevention), relapse prevention, importance of follow up with psychiatrist and therapist, stay away from drugs/alcohol/smoking Estimated Date of D/C: 12/16/18
[2018-12-14 15:17] VITALS: RESP 19
[2018-12-15] MEDS: Lubricant Eye Drops UD OU SCH ×3 (05:57→09:15)
[2018-12-15 07:39] VITALS: BP 115/79; TEMP 98
[2018-12-15] MEDS: Multivitamin Therapeutic Tab PO SCH (09:15)
--- NOTE | 2018-12-15 10:46 | PN ---
DATE: 12/15/2018 SUBJECTIVE: She had told me yesterday that she was leaving the hospital yesterday, but it turns she is leaving today. She is comfortable. She is eating well. She slept well. She is on Ativan, folic acid, Lexapro, Librium, Lipitor, Motrin, Refresh eye drops, Sonata, Thera-Tabs and Zofran. PHYSICAL EXAMINATION VITAL SIGNS: She has a 98 temperature, 77 pulse, 115/79 blood pressure and 19 respiratory rate. HEENT: Head is atraumatic and normocephalic. HEART: Regular rate. LUNGS: Decreased breath sounds, but clear. ABDOMEN: Soft. EXTREMITIES: No edema. She is trying to go to rehab, she has take care of some financial issues that she has to do in the next day or two. We will get her a note for these things that she was in the hospital and then she will hopefully get to rehab which is our plan, so she is not on board with the drinking anymore. She was here for alcohol abuse and DTs and hopefully she will do very well. Jeffrey Ziegler DO [id number]
--- NOTE | 2018-12-16 09:26 | PCM.PYCHDC ---
Mental Status Examination - Mental Status Examination Orientation: Person, Place, Situation Memory: Intact Mood: Neutral Affect: Constricted (Mood congruent) Speech: Appropriate Attention: WNL Concentration: WNL Association: WNL Fund of Knowledge: WNL Formal Thought Process: No Impairment Description of patient's judgement and insight: Pt has improved insight into mental and medical illness, pt was compliant with medications and unit rules and regulations, pt was going to groups, was calm, cooperative, socially appropriate, no behavioral incidents, no agitation, no aggression. Psychotic Thoughts and Behaviors: Pt denied v/a/t hallucinations, denied paranoid ideations, pt does not appear to be psychotic, and thought process is goal directed. Suicidal Ideation: No Current Homicidal Ideation?: No Plan: pt adamantly denied thoughts of harming self or others denied intent or plan. Discharge Summary - Discharge Note Reason for Hospitalization: Depression, inability to function Laboratory Data: 12/12/18 07:00 12/12/18 07:00 Lab Results 12/12/18 07:00: TSH 3rd Generation 2.74 12/12/18 07:00: Sodium 138, Potassium 4.1, Chloride 106, Carbon Dioxide 27, Anion Gap 10, BUN 16, Creatinine 0.5 L, Est GFR ( Amer) > 60, Est GFR (Non-Af Amer) > 60, Random Glucose 100, Calcium 9.3, Total Bilirubin 0.4, AST 23, ALT 9, Alkaline Phosphatase 63, Total Protein 7.5, Albumin 4.2, Globulin 3.2, Albumin/Globulin Ratio 1.3 12/12/18 07:00: WBC 5.1 D, RBC 4.65, Hgb 13.7, Hct 41.9, MCV 90.1, MCH 29.5, MCHC 32.7, RDW 13.2, Plt Count 294, MPV 9.9 12/11/18 07:30: RPR Nonreactive 12/11/18 07:30: TSH 3rd Generation 4.98 H 12/11/18 07:30: Fasting Glucose 107, Triglycerides 126, Cholesterol 263 H, LDL Cholesterol Direct 152 H, HDL Cholesterol 73 H Vital Signs Temp Pulse Resp BP Pulse Ox 12/15/18 07:00 98 F 77 19 115/79 12/14/18 16:00 77 104/65 12/14/18 07:00 97.8 F 77 19 112/72 12/14/18 06:34 97.8 F 77 18 112/72 12/13/18 16:46 88 101/68 12/13/18 08:00 97.5 F L 85 20 113/80 12/12/18 16:44 90 119/82 12/12/18 07:00 97.4 F L 88 19 112/84 12/11/18 16:19 85 122/77 12/11/18 07:00 98 F 97 H 18 130/95 H 12/10/18 19:11 98.7 F 93 H 18 148/96 H 96 Consultations:: List each consultation separately and include: 1. Reason for request. 2. Findings. 3. Follow-up Consultations: Medical consult appreciated, please see notes for more detailed information Summary of Hospital Course include:: 1. Description of specific treatment plan utilized for patients during their course of treatmen. 2. Summarize the time- course for resolution of acute symptoms and/or regressed behaviors. 3. Describe issues identified and worked on during hospitalization. 4. Describe medication utilized. 5. Describe medical problems identified and treated. 6. Reassessment of suicide risk Summary of Hospital Course: as per 's initial assessment: Patient is a 58 yo WF with a history of depression and anxiety, alcohol dependency, + prior psychiatric admissions~most recently in 2014 at [facility] [place] and treated by Dr. Rowley, currently in outpatient treatment with Dr. Chaney, compliant with prescribed Lexapro 10 mg daily and Adderall (unknown but low dose), no SA who was transferred from the medical floor on 12/10/18 after being treated there for alcohol withdrawal. This senior medical writer evaluated pt on the medical site as a safety and health consultant on 12/10/18 and recommended Lexapro be increased to 15 mg po daily and possibility of starting naltrexone which patient appeared receptive to. See admission note for more detailed information. Patient was stabilized on the following medications: Lexapro was maximized to 20 mg daily for depression and anxiety multivitamins Folic acid Thiamine Naltrexone 50 mg daily Zofran 4mg as needed for nausea Patient was on tapering dose of Librium Lipitor 10 mg at the nighttime Patient tolerated all medications well, no side effects observed or reported, aims 0, no EPS. Over the course of this hospitalization pt was attending groups, pt also had medication management, had therapeutic milieu. Overall pt improved significantly, pt's affect became brighter, pt was less depressed, has realistic future oriented plans, patient was offered inpatient rehab admission, patient reported that she has court hearing December 16 and she cannot miss that, patient reported that she will arrange inpatient rehab he rself, patient was to follow-up with her psychiatrist and will be attending AA meetings, it seems pt's insight improved significantly. At the time of the discharge patient pose no imminent danger to self or others, will be following up [facility] co-occurring program, information about follow up appointment, time and address provided to the pt, (see SW note for more detailed information). It is a patient responsibility to follow up with outpatient clinic, PMD as well as specialists In case patient will need to obtain results of studies pending at discharge, patient was provided with contact information of Psychiatric Inpatient unit [phone] as well as Medical Record Department [phone], as well as [facility] team [phone]. Naltrexone treatment offered, provided Counseling about alcohol cessation provided AA meetings treatment program information was provided by the pt was provided with prescriptions (see medication reconciliation form) Pt was educated about safety plan in case of worsening of symptoms or in case of suicidal or homicidal ideation call 911 or go to the nearest ER, also was educated to take meds as prescribed and stay away from drugs, pt verbalized understanding. - Diagnosis (1) Alcohol use disorder, severe, dependence Status: Chronic Priority: High (2) Depression Status: Chronic Priority: Medium (3) Substance induced mood disorder Status: Acute Priority: High - Final Diagnosis (DSM 5) Condition upon Discharge: GOOD Disposition: HOME/ ROUTINE Follow-up Treatment Plan: At the time of the discharge patient pose no imminent danger to self or others, will be following up [facility] co-occurring program, information about follow up appointment, time and address provided to the pt, (see SW note for more detailed information). It is a patient responsibility to follow up with o utpatient clinic, PMD as well as specialists In case patient will need to obtain results of studies pending at discharge, patient was provided with contact information of Psychiatric Inpatient unit [phone] as well as Medical Record Department [phone], as well as [facility] team [phone]. Naltrexone treatment offered, provided Counseling about alcohol cessation provided AA meetings treatment program information was provided by the [facility] pt was provided with prescriptions (see medication reconciliation form) Pt was educated about safety plan in case of worsening of symptoms or in case of suicidal or homicidal ideation call 911 or go to the nearest ER, also was educated to take meds as prescribed and stay away from drugs, pt verbalized understanding. pt was provided with the following letter to her job: December 15, 2018 To whom it may concern: This letter is letting you know that Corinna Suarez 1960 was admitted to [facility] -12/15/18. may go back to her regular physical activities without any restrictions. Should you have any questions in regards of this matter, please feel free to call me at the phone number listed below. Sincerely, . Prescriptions/Medication Reconciliation: Atorvastatin [Lipitor] 10 mg PO DIN #7 tab chlordiazePOXIDE [Librium] 25 mg PO QID #20 cap Escitalopram [Lexapro] 20 mg PO DAILY #14 tab Folic Acid 1 mg PO DAILY #14 tab Multivitamin Therapeutic Tab [Thera Tab] 1 tab PO 0800 #14 tab Naltrexone [Revia] 50 mg PO DAILY #14 tab Ondansetron [Zofran Tab] 4 mg PO TID #7 tab Polyvinyl Alcohol/Povidone [Refresh Opth Soln] 0.3 ml OU Q4H #1 drpette - Smoking Cessation Smoking Cessation Medication prescribed: No Reason for not providing: denied smoking - Antipsychotic Medications Pt discharged on 2 or more routine antipsychotic medications: No
== END 2018-12-15 13:05 | disposition home or self-care (01) | DRG 885 ==
LOC: PSYC 18:55
PROVIDERS: ADMIT Psychiatry & Neurology Psychiatry; ATTEND Psychiatry & Neurology Psychiatry
DX: F32.2 Major depressive disorder, single episode, severe without psychotic features (principal); F10.239 Alcohol dependence with withdrawal, unspecified; F19.94 Other psychoactive substance use, unspecified with psychoactive substance-induced mood disorder; F41.9 Anxiety disorder, unspecified; G47.00 Insomnia, unspecified; E78.00 Pure hypercholesterolemia, unspecified; Z79.899 Other long term (current) drug therapy; Z87.891 Personal history of nicotine dependence; Z90.49 Acquired absence of other specified parts of digestive tract; Z88.0 Allergy status to penicillin